=== PATIENT | female | born 1960 | race Two or more races ===

== ENCOUNTER 2022-11-24 21:46 | Emergency (ER) | payer SELFPAY ==
[2022-11-24 22:14] VITALS: BP 131/76
[2022-11-24] MEDS ORDERED: KETOROLAC TROMETH 60MG/2ML VIAL IM ONE (22:15)
[2022-11-25] MEDS ORDERED: IBUP800T26 PO (00:40)
== END 2022-11-25 03:16 | disposition home or self-care (01) ==
LOC: ER 21:46
DX: S09.93XA Unspecified injury of face, initial encounter (principal); X58.XXXA Exposure to other specified factors, initial encounter; Y93.89 Activity, other specified; Y92.89 Other specified places as the place of occurrence of the external cause; Y99.8 Other external cause status
CPT/HCPCS: 96372; 99283; J1885

== ENCOUNTER 2022-12-04 13:01 | Emergency (ER) | payer SELFPAY ==
[~2022-12-04] VITALS: Ht 152.4 cm; Wt 50.4 kg
[~2022-12-04 13:01] MED LIST: IBUP800T26 PO
[2022-12-04 13:57] VITALS: BP 131/76
[2022-12-04] MEDS ORDERED: HYDROcodone-ACET 5/325MG TAB PO ONE (14:15)
[2022-12-04] MEDS ORDERED: AMOX-277 PO (18:46)
[2022-12-04] MEDS ORDERED: NAP500T PO (18:46)
[2022-12-05] MEDS ORDERED: AMOX-277 PO (17:31)
[2022-12-05] MEDS ORDERED: IBUP800T26 PO (17:31)
[2022-12-05] MEDS ORDERED: NAP500T PO (17:31)
== END 2022-12-04 18:49 | disposition home or self-care (01) ==
LOC: ER 13:01
DX: H60.92 Unspecified otitis externa, left ear (principal); J06.9 Acute upper respiratory infection, unspecified; B97.89 Other viral agents as the cause of diseases classified elsewhere; Z79.899 Other long term (current) drug therapy